=== PATIENT | female | born 1930 | race Caucasian/White ===

== ENCOUNTER 2017-02-25 09:10 | Outpatient (CLI) | payer MEDICARE, OTHER ==
[2016-08-03 19:40] VITALS: BP 150/79
[2017-02-25 09:27] LABS: BASOPHILS % 0.5 (0.0-1.5); EOSINOPHILS % 2.7 % (0.0-6.8); MEAN CORPUSCULAR HEMOGLOBIN 31.2 pg (28.0-34.0); MEAN CORPUSCULAR VOLUME 95.4 fl (80.0-100.0); NEUTROPHILS # 2.9 # k/uL (1.4-7.7)
[2017-02-25 10:15] LABS: eGFR (African) > 60; eGFR (Non-African) > 60
== END 2017-02-25 09:11 ==
LOC: LAB 09:10
PROVIDERS: ATTEND Orthopaedic Surgery
DX: M75.101 Unspecified rotator cuff tear or rupture of right shoulder, not specified as traumatic (principal)
CPT/HCPCS: 36415; 80053; 85025

== ENCOUNTER 2017-03-16 14:15 | Inpatient (IN) | payer MEDICARE, OTHER ==
[2017-03-16 14:40] VITALS: BMI 25.8
[2017-03-16] MEDS ORDERED: ONDANSETRON HCL 4 MG TAB.RAPDIS PO PRN (18:16)
--- NOTE | 2017-03-16 18:35 | History and Physical Report ---
History of Present Illnes - History of Present Illness Reason for Visit: gait disurbance following rotator cuff reapir surgery History of Present Illness: 87 yo white female who was seen at [facility] for rotator cuff tear and right shoulder pain. Patient has been treated with PT, exercises steroid injections, and medications with only short term relief if any. Patient believed that her pain was causing enough pain and disability it was felt that she would benefit from rotator cuff surgery. Patient underwent surgical repair of superior capsule reconstruction and steroid in jection. Patient denies tht she has had any postsurgical problems. - Past Medical History Gastrointestinal: GERD Heme/Onc: Cancer (breast) Renal/: Other (bladder spasms with urinary incotinence) Endocrine: Hypothyroidism - Past Surgical History Past Surgical History: None - Past Family History Father Family History: Cancer, CVA, Hypertension, - Past Social History Smoke: No Alcohol: None Drugs: None Lives: Alone Domestic Violence: Negative - Health Maintenance Health Maintenance: Influenza Vaccine, Pneumococcal Vaccine Influenza Vaccine: Current for this Influenza Season Pneumonia Vaccine: Yes Resuscitation Status: Resusciation Status Resuscitation Status Full Code - Unable to Obtain History Unable to Obtain: Yes Review of Systems - Review of Systems Constitutional: negative: Fever, Chills Eyes: negative: pain, vision change ENT: negative: Ear Pain, Ear Discharge, Nose Pain, Nose Discharge, Nose Congestion, Mouth Pain, Mouth Swelling, Throat Pain, Throat Swelling Respiratory: negative: Cough, Dry, Shortness of Breath, Hemoptysis, SOB with Excertion, Pleuritic Pain Cardiovascular: negative: Chest Pain, Palpitations Gastrointestinal: Constipation. negative: Nausea, Vomiting, Abdominal Pain, Diarrhea, Melena, Hematochezia Genitourinary: negative: Dysuria, Frequency Musculoskeletal: negative: Neck Pain, Shoulder Pain Skin: negative: Rash, Lesions Neurological: negative: Weakness, Numbness, Incoordination - Medications/Allergies Allergies/Adverse Reactions: Allergies Allergy/AdvReac Type Severity Reaction Status Date / Time No Known Allergies Allergy Verified 09/12/15 10:55 Current Inpatient Medications: Current Inpatient Medications Acetaminophen (Tylenol) 325 mg PO Q4H PRN PRN Reason: Fever >101 Aspirin (Ecotrin) 81 mg PO DAILY [facility] Calcium/Vitamin D (Caltrate With Vit D-3) 1 each PO DAILY [facility] Levothyroxine Sodium (Synthroid) 75 mcg PO 0700 [facility] Multivitamins (Tab-A-Sin) 1 each PO DAILY [facility] Ondansetron HCl (Zofran Odt) 4 mg PO Q6H PRN PRN Reason: Nausea / Vomiting Oxycodone HCl (Percolone) 5 mg PO Q4 [facility] Pantoprazole Sodium (Protonix) 40 mg PO 0700 [facility] Tolterodine Tartrate (Detrol La) 2 mg PO DAILY [facility] Exam - Exam Vital Signs: Vital Signs (72 hours) 03/16/17 03/16/17 14:33 14:35 Temperature 98.6 F 98.6 F Pulse Rate [ 68 68 Left] Respiratory 18 18 Rate Blood Pressure 129/71 129/71 [Left Arm] O2 Sat by Pulse 93 93 Oximetry General: Alert, Oriented to Person, Oriented to Place, Oriented to Time, Cooperative, No acute distress HEENT: Atraumatic, PERRLA Neck: Normal Range of Motion. No: Lymphadenopathy Carotids: WNL Thyroid: WNL Lungs: Clear to auscultation, Normal air movement, Speaks full Sentences, Respiratory Distress. No: Wheezes, Rales, Rhonchi Cardiovascular: Regular rate, Normal S1, Normal S2, No murmurs, Gallops Abdomen: Normal bowel sounds, Soft, No tenderness, No hepatospenomegaly Integumentary: Normal, [place], Warm, Dry Extremities: No clubbing, No cyanosis, No edema Neurological: Normal gait, Normal speech, Strength Equal Bilat Psych/Mental Status: Mental status NL, Mood NL, Appropriate Affect, Intact Judgment Assessment/Plan - Assessment/Plan (1) S/P rotator cuff surgery Status: Acute Assessment: monitor pain medication (2) Hypothyroidism Status: Chronic Qualifiers: Hypothyroidism type: acquired Qualified Code(s): E03.9 - Hypothyroidism, unspecified Assessment: stable VTE Assessment - RISK FACTOR SCORE VTE RISK FACTOR SCORES: AGE OVER 60 YEARS, MINOR SURGERY/ ANESTHESIA TIME < 1 HOUR - RISK VTE MODERATE RISK: SCORE OF 2 (RISK PROXIMAL DVT 2-4%) PROPHYAXIS NEEDED ( Orthopedic perfer no VTE other then asprin)
[2017-03-16] MEDS: oxyCODONE HCL 5 MG TABLET PO SCH (20:13)
[2017-03-17] MEDS: oxyCODONE HCL 5 MG TABLET PO SCH ×6 (01:21→21:22)
[2017-03-17] MEDS ORDERED: ASPIRIN 81 MG CHEW TAB ONE (04:56)
[2017-03-17] MEDS ORDERED: CALCIUM CARB 500/VIT D 200 1 EACH TABLET ONE (04:56)
[2017-03-17] MEDS: PANTOPRAZOLE SODIUM 40 MG TABLET PO SCH (05:34)
[2017-03-17] MEDS: LEVOTHYROXINE SODIUM 25 MCG TABLET PO SCH (05:34)
[2017-03-17] MEDS: CALCIUM CARB 600MG/VIT D-3 400 1 EACH TABLET PO SCH (09:48)
[2017-03-17] MEDS: ASPIRIN EC 81 MG TABLET.DR PO SCH (09:49)
[2017-03-17] MEDS: MULTIVITAMIN 1 EACH TABLET PO SCH (09:49)
[2017-03-17] MEDS: TOLTERODINE TARTRATE 2 MG CAP.ER.24H PO SCH (09:52)
[2017-03-17] MEDS ORDERED: POLYETHYLENE GLYCOL 3350 17 GM POWD.PACK PO PRN (18:50)
[2017-03-17] MEDS: DOCUSATE SODIUM 100 MG CAPSULE PO SCH (19:45)
[2017-03-18] MEDS: oxyCODONE HCL 5 MG TABLET PO SCH ×6 (01:00→20:40)
[2017-03-18] MEDS: PANTOPRAZOLE SODIUM 40 MG TABLET PO SCH (06:00)
[2017-03-18] MEDS: LEVOTHYROXINE SODIUM 25 MCG TABLET PO SCH (06:00)
[2017-03-18] MEDS: CALCIUM CARB 600MG/VIT D-3 400 1 EACH TABLET PO SCH (08:43)
[2017-03-18] MEDS: MULTIVITAMIN 1 EACH TABLET PO SCH (08:44)
[2017-03-18] MEDS: ASPIRIN EC 81 MG TABLET.DR PO SCH (08:44)
[2017-03-18] MEDS: TOLTERODINE TARTRATE 2 MG CAP.ER.24H PO SCH (08:44)
[2017-03-18] MEDS: DOCUSATE SODIUM 100 MG CAPSULE PO SCH (08:44)
[2017-03-18] MEDS: MAGNESIUM HYDROXIDE 400 MG/5 ML 30ML UDC PO PRN (17:51)
--- NOTE | 2017-03-18 17:51 | Inpatient Progress Note ---
Subjective - Required Recertification Statement I anticipate X number of days because-include discharge plan: 10 - Review of Systems Events since last encounter: Patient seems to be doing well, complains of not feeling well today, is having some constipation issues. no BM since surgery. Pain is being well controlled. Participating with PT and OT well. General: Denies: Chills, Fatigue Pulmonary: Denies: Dyspnea, Cough Cardiovascular: Denies: Chest Pain Gastrointestinal: Nausea, Abdominal Pain (cramping), Constipation. Denies: Diarrhea, Melena Objective - Exam Vitals and I&O: Vital Signs Temp 98.8 F 03/18/17 09:00 Pulse 84 03/18/17 09:00 Resp 16 03/18/17 09:00 BP 140/80 03/18/17 09:00 Pulse Ox 96 03/18/17 09:00 Intake & Output 03/17/17 03/18/17 03/18/17 23:59 11:59 23:59 Intake Total 480 Balance 480 Weight 58.06 kg Intake: Oral 480 Other: Voiding Method Toilet # Voids 2 General: Alert, Oriented to Person, Oriented to Place, Oriented to Time, Cooperative Neck: Supple, No JVD Lungs: Clear to auscultation, Normal air movement, Speaks full Sentences. No: Respiratory Distress, Wheezes, Rales, Rhonchi Cardiovascular: Regular rate, Normal S1, Normal S2, No murmurs Abdomen: Normal bowel sounds, Soft, No tenderness, No hepatospenomegaly, No masses Extremities: No clubbing, No cyanosis, No edema Skin: Normal, [place], Warm, Dry Assessment/Plan - Assessment/Plan (1) Constipation due to opioid therapy Status: Acute Current Visit: Yes (2) S/P rotator cuff surgery Status: Acute Current Visit: Yes Assessment: stable (3) Hypothyroidism Status: Chronic Current Visit: Yes Qualifiers: Hypothyroidism type: acquired Qualified Code(s): E03.9 - Hypothyroidism, unspecified Assessment: stable
[2017-03-18] MEDS: ASPIRIN EC 325 MG TABLET.DR PO SCH (19:26)
[2017-03-19] MEDS: oxyCODONE HCL 5 MG TABLET PO SCH ×6 (02:03→20:41)
[2017-03-19] MEDS: LEVOTHYROXINE SODIUM 25 MCG TABLET PO SCH (05:59)
[2017-03-19] MEDS: PANTOPRAZOLE SODIUM 40 MG TABLET PO SCH (05:59)
[2017-03-19 06:40] LABS: BASOPHILS % 0.6 (0.0-1.5); EOSINOPHILS % 4.7 % (0.0-6.8); MEAN CORPUSCULAR HEMOGLOBIN 31.9 pg (28.0-34.0); MEAN CORPUSCULAR VOLUME 95.3 fl (80.0-100.0); MONOCYTES % 7.2 % (0.0-11.0); NEUTROPHILS # 3.1 # k/uL (1.4-7.7)
[2017-03-19 07:27] LABS: eGFR (African) > 60; eGFR (Non-African) > 60
[2017-03-19] MEDS: CALCIUM CARB 600MG/VIT D-3 400 1 EACH TABLET PO SCH (09:22)
[2017-03-19] MEDS: MULTIVITAMIN 1 EACH TABLET PO SCH (09:23)
[2017-03-19] MEDS: DOCUSATE SODIUM 100 MG CAPSULE PO SCH (09:23)
[2017-03-19] MEDS: TOLTERODINE TARTRATE 2 MG CAP.ER.24H PO SCH (09:23)
[2017-03-19] MEDS: ASPIRIN EC 325 MG TABLET.DR PO SCH (09:23)
[2017-03-19] MEDS: MAG HYDROX/AL HYDROX/SIMETH 30 ML UDC PO PRN (15:16)
[2017-03-20] MEDS: oxyCODONE HCL 5 MG TABLET PO SCH ×6 (00:42→19:57)
[2017-03-20] MEDS: LEVOTHYROXINE SODIUM 25 MCG TABLET PO SCH (05:42)
[2017-03-20] MEDS: PANTOPRAZOLE SODIUM 40 MG TABLET PO SCH (05:43)
[2017-03-20] MEDS: MULTIVITAMIN 1 EACH TABLET PO SCH (08:14)
[2017-03-20] MEDS: CALCIUM CARB 600MG/VIT D-3 400 1 EACH TABLET PO SCH (08:14)
[2017-03-20] MEDS: DOCUSATE SODIUM 100 MG CAPSULE PO SCH (08:14)
[2017-03-20] MEDS: TOLTERODINE TARTRATE 2 MG CAP.ER.24H PO SCH (08:14)
[2017-03-20] MEDS: ASPIRIN EC 325 MG TABLET.DR PO SCH (08:14)
[2017-03-20] MEDS ORDERED: ZOLPIDEM TARTRATE 5 MG TABLET PO PRN (08:19)
[2017-03-20] MEDS: MAG HYDROX/AL HYDROX/SIMETH 30 ML UDC PO PRN (13:01)
[2017-03-21] MEDS: oxyCODONE HCL 5 MG TABLET PO SCH ×6 (02:07→20:25)
[2017-03-21] MEDS: PANTOPRAZOLE SODIUM 40 MG TABLET PO SCH (06:03)
[2017-03-21] MEDS: LEVOTHYROXINE SODIUM 25 MCG TABLET PO SCH (06:04)
[2017-03-21] MEDS: TOLTERODINE TARTRATE 2 MG CAP.ER.24H PO SCH (09:50)
[2017-03-21] MEDS: CALCIUM CARB 600MG/VIT D-3 400 1 EACH TABLET PO SCH (09:50)
[2017-03-21] MEDS: DOCUSATE SODIUM 100 MG CAPSULE PO SCH (09:50)
[2017-03-21] MEDS: MULTIVITAMIN 1 EACH TABLET PO SCH (09:51)
[2017-03-21] MEDS: ASPIRIN EC 325 MG TABLET.DR PO SCH (09:51)
[2017-03-21] MEDS: MAG HYDROX/AL HYDROX/SIMETH 30 ML UDC PO PRN (13:29)
[2017-03-21] MEDS: ACETAMINOPHEN 325 MG TABLET PO PRN (15:19)
[2017-03-22] MEDS: oxyCODONE HCL 5 MG TABLET PO SCH ×6 (01:00→20:07)
[2017-03-22] MEDS: PANTOPRAZOLE SODIUM 40 MG TABLET PO SCH (06:02)
[2017-03-22] MEDS: LEVOTHYROXINE SODIUM 25 MCG TABLET PO SCH (06:03)
[2017-03-22] MEDS: TOLTERODINE TARTRATE 2 MG CAP.ER.24H PO SCH (09:23)
[2017-03-22] MEDS: CALCIUM CARB 600MG/VIT D-3 400 1 EACH TABLET PO SCH (09:23)
[2017-03-22] MEDS: DOCUSATE SODIUM 100 MG CAPSULE PO SCH (09:23)
[2017-03-22] MEDS: ASPIRIN EC 325 MG TABLET.DR PO SCH (09:24)
[2017-03-22] MEDS: MULTIVITAMIN 1 EACH TABLET PO SCH (09:24)
[2017-03-23] MEDS: oxyCODONE HCL 5 MG TABLET PO SCH ×6 (00:33→20:29)
[2017-03-23] MEDS: LEVOTHYROXINE SODIUM 25 MCG TABLET PO SCH (06:06)
[2017-03-23] MEDS: PANTOPRAZOLE SODIUM 40 MG TABLET PO SCH (06:06)
[2017-03-23] MEDS: CALCIUM CARB 600MG/VIT D-3 400 1 EACH TABLET PO SCH (09:14)
[2017-03-23] MEDS: ASPIRIN EC 325 MG TABLET.DR PO SCH (09:14)
[2017-03-23] MEDS: DOCUSATE SODIUM 100 MG CAPSULE PO SCH (09:14)
[2017-03-23] MEDS: MULTIVITAMIN 1 EACH TABLET PO SCH (09:14)
[2017-03-23] MEDS: TOLTERODINE TARTRATE 2 MG CAP.ER.24H PO SCH (09:14)
[2017-03-24] MEDS: oxyCODONE HCL 5 MG TABLET PO SCH ×6 (00:58→22:15)
[2017-03-24] MEDS: LEVOTHYROXINE SODIUM 25 MCG TABLET PO SCH (06:01)
[2017-03-24] MEDS: PANTOPRAZOLE SODIUM 40 MG TABLET PO SCH (06:01)
[2017-03-24 06:50] LABS: OCCULT BLOOD,URINE TRACE-INTACT (NEGATIVE); PH URINE 6.5 (5.0 - 8.0); UROBILINOGEN URINE 0.2 Eu (0.2-1.0)
[2017-03-24] MEDS: ASPIRIN EC 325 MG TABLET.DR PO SCH (09:04)
[2017-03-24] MEDS: TOLTERODINE TARTRATE 2 MG CAP.ER.24H PO SCH (09:04)
[2017-03-24] MEDS: CALCIUM CARB 600MG/VIT D-3 400 1 EACH TABLET PO SCH (09:04)
[2017-03-24] MEDS: DOCUSATE SODIUM 100 MG CAPSULE PO SCH (09:04)
[2017-03-24] MEDS: MULTIVITAMIN 1 EACH TABLET PO SCH (09:05)
[2017-03-24] MEDS: ACETAMINOPHEN 325 MG TABLET PO PRN ×2 (15:57→22:15)
[2017-03-24] MEDS: MAGNESIUM HYDROXIDE 400 MG/5 ML 30ML UDC PO PRN (17:47)
[2017-03-25] MEDS: oxyCODONE HCL 5 MG TABLET PO SCH ×6 (01:00→20:51)
[2017-03-25] MEDS: LEVOTHYROXINE SODIUM 25 MCG TABLET PO SCH (05:44)
[2017-03-25] MEDS: PANTOPRAZOLE SODIUM 40 MG TABLET PO SCH (05:44)
[2017-03-25] MEDS: CALCIUM CARB 600MG/VIT D-3 400 1 EACH TABLET PO SCH (09:12)
[2017-03-25] MEDS: DOCUSATE SODIUM 100 MG CAPSULE PO SCH (09:12)
[2017-03-25] MEDS: TOLTERODINE TARTRATE 2 MG CAP.ER.24H PO SCH (09:12)
[2017-03-25] MEDS: MULTIVITAMIN 1 EACH TABLET PO SCH (09:12)
[2017-03-25] MEDS: ASPIRIN EC 325 MG TABLET.DR PO SCH (09:12)
[2017-03-25] MEDS: ACETAMINOPHEN 325 MG TABLET PO PRN (11:10)
[2017-03-25] MEDS: MAG HYDROX/AL HYDROX/SIMETH 30 ML UDC PO PRN (11:12)
[2017-03-26] MEDS: oxyCODONE HCL 5 MG TABLET PO SCH ×5 (00:44→16:29)
[2017-03-26] MEDS: PANTOPRAZOLE SODIUM 40 MG TABLET PO SCH (05:44)
[2017-03-26] MEDS: LEVOTHYROXINE SODIUM 25 MCG TABLET PO SCH (05:44)
[2017-03-26] MEDS: CALCIUM CARB 600MG/VIT D-3 400 1 EACH TABLET PO SCH (09:08)
[2017-03-26] MEDS: DOCUSATE SODIUM 100 MG CAPSULE PO SCH (09:08)
[2017-03-26] MEDS: TOLTERODINE TARTRATE 2 MG CAP.ER.24H PO SCH (09:08)
[2017-03-26] MEDS: MULTIVITAMIN 1 EACH TABLET PO SCH (09:09)
[2017-03-26] MEDS: ASPIRIN EC 325 MG TABLET.DR PO SCH (09:09)
[2017-03-26 10:43] VITALS: BP 149/87
[2017-03-26] MEDS: ACETAMINOPHEN 325 MG TABLET PO PRN (11:56)
--- NOTE | 2017-04-25 15:49 | Discharge Summary ---
Discharge Summary - Discharge Sumary History of Present Illness: 87 yo white female who was seen at [facility] for rotator cuff tear and right shoulder pain. Patient has been treated with PT, exercises steroid injections, and medications with only short term relief if any. Patient believed that her pain was causing enough pain and disability it was felt that she would benefit from rotator cuff surgery. Patient underwent surgical repair of superior capsule reconstruction and steroid in jection. Patient denies tht she has had any postsurgical problems. Home Medications: Ambulatory Orders Medication Instructions Recorded Acetaminophen [Tylenol] 325 mg PO Q4H PRN 03/26/17 Aspirin EC [Ecotrin] 325 mg PO DAILY 03/26/17 Calcium Carb 600Mg/Vit D-3 400 1 each PO DAILY 03/26/17 [CALTRATE WITH D-3] Docusate Sodium [Colace] 100 mg PO DAILY 03/26/17 Multivitamin [Tab-A-Sin] 1 each PO DAILY 03/26/17 Polyethylene Glycol 3350 [Miralax] 17 gm PO QDAY PRN 03/26/17 oxyCODONE HCL [Percolone] 5 mg PO Q6 PRN #30 tab 03/26/17 Consultations this Visit: None Procedures this Visit: None Allergies/Adverse Reactions: Allergies Allergy/AdvReac Type Severity Reaction Status Date / Time No Known Allergies Allergy Verified 09/12/15 10:55 Discharge Summary: Patient was started was physical and occupational therapy. Patient was highly motivated to participate in therapy programs and make good progress. Patient hypothyroidism remains stable. Patient did have some mild constipation which was treated symptomatically. At the time of dismissal was felt that the patient could be managed on an outpatient basis and with discharge and stable condition. - Final Diagnosis (1) S/P rotator cuff surgery Problems: improved (2) Hypothyroidism Problems: stable
--- NOTE | 2017-04-25 15:51 | Inpatient Progress Note ---
Subjective - Required Recertification Statement I anticipate X number of days because-include discharge plan: 5 days - Review of Systems Events since last encounter: Patient states she is making progress with movement of her shoulder. Patient is able to do her daily living cares that her. Patient denies any other problems at this time. Objective - Exam Vitals and I&O: Vital Signs Temp 98.6 F 03/26/17 09:00 Pulse 90 03/26/17 09:00 Resp 20 03/26/17 09:00 BP 149/87 03/26/17 09:00 Pulse Ox 96 03/26/17 09:00 General: Alert, Oriented to Person, Oriented to Place Lungs: Clear to auscultation, Normal air movement, Speaks full Sentences. No: Wheezes, Rales, Rhonchi Cardiovascular: Regular rate, Normal S1, Normal S2, No murmurs Skin: Normal, [place] - Results Results: Laboratory Results WBC 5.20 K/ul (4.00-12.00) 03/19/17 06:25 RBC 3.68 M/ul (3.90-5.20) L 03/19/17 06:25 Hgb 11.7 g/dL (12.0-16.0) L 03/19/17 06:25 Hct 35.0 % (34.5-46.5) 03/19/17 06:25 MCV 95.3 fl (80.0-100.0) 03/19/17 06:25 MCH 31.9 pg (28.0-34.0) 03/19/17 06:25 MCHC 33.5 g/dL (30.0-36.0) 03/19/17 06:25 RDW 12.9 % (11.3-14.3) 03/19/17 06:25 Plt Count 168 K/mm3 (130-400) 03/19/17 06:25 Neut % (Auto) 59.4 % (39.0-79.0) 03/19/17 06:25 Lymph % (Auto) 24.7 % (16.0-50.0) 03/19/17 06:25 Wirt % (Auto) 7.2 % (0.0-11.0) 03/19/17 06:25 Eos % (Auto) 4.7 % (0.0-6.8) 03/19/17 06:25 Baso % (Auto) 0.6 (0.0-1.5) 03/19/17 06:25 Neut # 3.1 # k/uL (1.4-7.7) 03/19/17 06:25 Lymph # 1.3 # k/uL (0.6-4.0) 03/19/17 06:25 Wirt # 0.4 # k/uL (0.0-0.9) 03/19/17 06:25 Eos # 0.2 # k/uL (0.0-0.6) 03/19/17 06:25 Baso # 0.0 # k/uL (0.0-0.5) 03/19/17 06:25 Reactive Lymphs % 3.5 % (0.0-5.0) 03/19/17 06:25 Reactive Lymphs # 0.2 # k/uL (0.0-0.8) 03/19/17 06:25 Sodium 138 mmol/L (136-145) 03/19/17 06:25 Potassium 5.0 mmol/L (3.5-5.0) 03/19/17 06:25 Chloride 111 mmol/L (98-110) H 03/19/17 06:25 Carbon Dioxide 32 mmol/L (20-32) 03/19/17 06:25 BUN 21 mg/dL (10-26) 03/19/17 06:25 Creatinine 0.9 mg/dL (0.4-1.5) 03/19/17 06:25 Estimated Creat Clear 49 03/19/17 06:25 Est GFR ( Amer) > 60 (60-) 03/19/17 06:25 Est GFR (Non-Af Amer) > 60 (60-) 03/19/17 06:25 Glucose 103 mg/dL (70-99) H 03/19/17 06:25 Calcium 9.1 mg/dL (8.5-10.5) 03/19/17 06:25 Total Bilirubin 0.3 mg/dL (0.2-1.2) 03/19/17 06:25 AST 21 U/L (0-41) 03/19/17 06:25 ALT 16 U/L (0-45) 03/19/17 06:25 Alkaline Phosphatase 60 U/L (46-116) 03/19/17 06:25 Total Protein 6.1 g/dL (6.0-8.5) 03/19/17 06:25 Albumin 3.8 g/dL (3.0-5.5) 03/19/17 06:25 Urine pH 6.5 (5.0 - 8.0) 03/23/17 20:52 Ur Specific [place] 1.025 (1.010-1.030) 03/23/17 20:52 Urine Protein Negative mg/dL (NEGATIVE) 03/23/17 20:52 Urine Ketones Negative mg/dL (NEGATIVE) 03/23/17 20:52 Urine Occult Blood Trace-intact (NEGATIVE) H 03/23/17 20:52 Urine Nitrite Negative (NEGATIVE) 03/23/17 20:52 Urine Bilirubin Negative (NEGATIVE) 03/23/17 20:52 Urine Urobilinogen 0.2 Eu (0.2-1.0) 03/23/17 20:52 Ur Leukocyte Esterase Trace (NEGATIVE) H 03/23/17 20:52 Urine Glucose Negative mg/dL (NEGATIVE) 03/23/17 20:52 Assessment/Plan - Assessment/Plan (1) S/P rotator cuff surgery Status: Acute Assessment: improving mobility (2) Hypothyroidism Status: Chronic Qualifiers: Hypothyroidism type: acquired Qualified Code(s): E03.9 - Hypothyroidism, unspecified Assessment: stable
== END 2017-03-26 16:48 | disposition home or self-care (01) | DRG 558 ==
LOC: SOUTH 14:15
PROVIDERS: ADMIT Family Medicine; ATTEND Family Medicine
DX: M75.100 Unspecified rotator cuff tear or rupture of unspecified shoulder, not specified as traumatic (principal); K59.03 Drug induced constipation; T40.2X5A Adverse effect of other opioids, initial encounter; E03.9 Hypothyroidism, unspecified
CPT/HCPCS: 36415; 80053; 81002; 85025

== ENCOUNTER 2018-08-24 09:02 | Outpatient (CLI) | payer MEDICARE, OTHER | END 2018-08-24 09:04 | LOC: RT 09:02 | PROVIDERS: ATTEND Family Medicine | DX: R06.09 Other forms of dyspnea (principal) ==

== ENCOUNTER 2018-11-23 08:56 | Outpatient (CLI) | payer MEDICARE, OTHER ==
[2018-11-23 09:25] LABS: APPEARANCE,URINE CLOUDY (CLEAR); COLOR,URINE YELLOW (YELLOW); OCCULT BLOOD,URINE 2+ (NEGATIVE); UROBILINOGEN URINE 0.2 Eu (0.2-1.0)
== END 2018-11-23 08:57 ==
LOC: LAB 08:56
PROVIDERS: ATTEND Internal Medicine Medical Oncology
DX: C50.912 Malignant neoplasm of unspecified site of left female breast (principal)
CPT/HCPCS: 81002

== ENCOUNTER 2019-02-23 11:07 | Outpatient (CLI) | payer MEDICARE, OTHER ==
--- NOTE | 2019-02-23 22:16 | Diagnostic Imaging Report ---
JESSIE GRUBBS [facility] [address] [facility] [address] [address] Report Submission Date: Feb 23, 2019 11:46:36 AM CDT Patient Study Name: GILDA LIN Date: Feb 23, 2019 11:12:26 AM CDT Modality Type: DX Gender: F Description: SHOULDER 2 VIEWS OR MORE : 34 Institution: [facility] Physician: JESSIE GRUBBS Examination: Plain film right shoulder History: PAIN AND DECREASED ROM Comparison exams: None provided Findings: 3 views of the right shoulder demonstrates diffuse osteopenia. Articular degenerative changes. Elevation of the humeral head with relation to the acromion. Impression: Advanced articular degenerative changes. Likely rotator cuff abnormality. Consider obtaining shoulder MRI to further evaluate. Electronically signed on Feb 23, 2019 11:46:36 AM CDT by: Matthew SUAREZ
== END 2019-02-23 11:10 ==
LOC: RAD 11:07
PROVIDERS: ATTEND Family Medicine
DX: M24.111 Other articular cartilage disorders, right shoulder (principal); M19.2 Secondary osteoarthritis of other joints
CPT/HCPCS: 73030

== ENCOUNTER 2019-07-04 09:50 | Outpatient (CLI) | payer MEDICARE, OTHER ==
[2019-07-04 11:13] LABS: eGFR (Non-African) > 60
== END 2019-07-04 09:53 ==
LOC: LAB 09:50
PROVIDERS: ATTEND Family Medicine
DX: E03.9 Hypothyroidism, unspecified (principal)
CPT/HCPCS: 36415; 80053; 84443